=== PATIENT | male | born 1995 | race Asian ===

== ENCOUNTER 2020-07-07 00:37 | Emergency (ER) | payer OTHER ==
[~2020-07-07] VITALS: Ht 162.6 cm; Wt 104.3 kg
[2020-07-07 00:46] VITALS: Ht 162.6 cm; Wt 104.3 kg
[2020-07-07 03:21] VITALS: BP 100/62
[2020-07-07] MEDS ORDERED: EPIPEN AUT0.3 MG/0.3 IM (17:54)
[2020-07-07] MEDS ORDERED: ZYRTEC ALLERGY10 MG PO (17:54)
== END 2020-07-07 03:19 | disposition home or self-care (01) ==
LOC: ED 00:37
DX: T78.40XA Allergy, unspecified, initial encounter (principal); J45.909 Unspecified asthma, uncomplicated; Z88.2 Allergy status to sulfonamides; X58.XXXA Exposure to other specified factors, initial encounter
CPT/HCPCS: J0171; J1200; J2930

== ENCOUNTER 2020-07-07 15:49 | Emergency (ER) | payer OTHER ==
[~2020-07-07] VITALS: Ht 162.6 cm; Wt 104.3 kg
[2020-07-07 15:57] VITALS: Ht 162.6 cm; Wt 104.3 kg
[2020-07-07] MEDS ORDERED: EPIPEN AUT0.3 MG/0.3 IM (17:54)
[2020-07-07] MEDS ORDERED: ZYRTEC ALLERGY10 MG PO (17:54)
[2020-07-07 18:03] VITALS: BP 120/78
== END 2020-07-07 18:03 | disposition home or self-care (01) ==
LOC: ED 15:49
DX: L50.9 Urticaria, unspecified (principal); J45.909 Unspecified asthma, uncomplicated; Z88.2 Allergy status to sulfonamides
CPT/HCPCS: J0171; J1200; J7512

== ENCOUNTER 2020-07-07 20:37 | Emergency (ER) | payer OTHER ==
[~2020-07-07] VITALS: Ht 162.6 cm; Wt 83.9 kg
[~2020-07-07 20:37] MED LIST: EPIPEN AUT0.3 MG/0.3 IM; ZYRTEC ALLERGY10 MG PO
[2020-07-07 20:43] VITALS: Ht 162.6 cm; Wt 83.9 kg
[2020-07-08 00:02] VITALS: BP 137/86
== END 2020-07-08 00:05 | disposition home or self-care (01) ==
LOC: ED 20:37
DX: L50.9 Urticaria, unspecified (principal)
CPT/HCPCS: J0171; J1200